=== PATIENT | female | born 1965 | race African-American/Black ===

== ENCOUNTER 2017-06-11 13:19 | Inpatient (IN) | payer OTHER, SELFPAY ==
--- NOTE | 2017-06-11 16:50 | RAD REPORT ---
EXAM DESCRIPTION: US - Abdomen Exam Limited - 06/11/2017 4:41 pm CLINICAL HISTORY: Abdominal pain COMPARISON: None. FINDINGS: Numerous sub centimeter mobile gallstones are identifiable. There is no wall thickening or pericholecystic fluid. Common bile duct measures 7-8 mm which is upper normal. No intrahepatic dilatation. No duct stone see n. A portion of the duct in the head of the pancreas is obscured. IMPRESSION: Multi stone cholelithiasis with no wall thickening or pericholecystic fluid. Common bile duct is upper normal but no duct stone seen. Correlation is needed with any biliary obstr uctive clinical or laboratory findings.
[2017-06-11 16:54] LABS: Urine Blood NEGATIVE (NEG); Urine Glucose NEGATIVE (NEG); Urine Protein TRACE (NEG); Urine pH >8.5 (5.0-7.0)
[2017-06-11 17:09] LABS: Absolute Lymphocytes (CBC) 1.6 K/uL (0.7-4.9); Absolute Monocytes 0.6 K/uL (0.1-1.3); Absolute Neutrophil 11.5 K/uL (1.8-8.0); Basophils % 0.2 % (0-1.3); Eosinophils % 0.2 % (0-4.4); Hematocrit 39.3 % (36.0-45.0); Lymphocytes % 11.4 % (15.3-44.8); MCH 29.6 pg (27.0-35.0); MCV 87.5 fL (80-100); MPV 8.7 fL (7.6-11.3); Monocytes % 4.7 % (3.3-12.3); RBC Red Blood Cell Count 4.49 M/uL (3.86-4.86)
[2017-06-11 17:16] LABS: Bicarbonate 28 mEq/L (21-31); Glucose Level 126 mg/dL (65-120); Lipase 183 U/L (22-51); Potassium 3.9 mEq/L (3.6-5.0); Sodium Level 137 mEq/L (135-145)
[2017-06-11 17:25] LABS: ALT/SGPT 153 IU/L (10-60); AST/SGOT 298 IU/L (10-42); Albumin 4.4 g/dL (3.2-5.5); Alkaline Phosphatase 129 IU/L (42-121); Amylase Level 97 U/L (28-100); BUN Blood Urea Nitrogen 11 mg/dL (6-20); Bilirubin Direct 0.9 mg/dL (0-0.2); Bilirubin Total 2.1 mg/dL (0.3-1.2); Protein, Total 9.7 g/dL (6.0-8.3)
[2017-06-11] MEDS ORDERED: NA CHLORIDE 0.9% 1,000 ML ONE (17:56)
[2017-06-11] MEDS ORDERED: METRONIDAZOLE 500mg IVPB 500 MG/100 ML BAG IV ONE (17:56)
[2017-06-11] MEDS ORDERED: CEFTRIAXONE/SWI 1gm 1 GM/10 ML SYR ONE (17:56)
--- NOTE | 2017-06-11 18:33 | RAD REPORT ---
EXAM DESCRIPTION: CTAbdomen Pelvis W Contrast - 06/11/2017 6:13 pm CLINICAL HISTORY: Abdominal pain. COMPARISON: None. TECHNIQUE: Biphasic CT imaging of the abdomen and pelvis was performed with 100 ml non-ionic IV cont rast. All CT scans are performed using dose optimization technique as appropriate and may include automated exposure control or mA/KV adjustment according to patient size. FINDINGS: The lung bases are clear. The liver, spleen, pancreas, adrenal glands and kidneys are within normal limits. No bowel obstruction, free air, free fluid or abscess. The appendix is normal. No evidence of signi ficant lymphadenopathy. No suspicious bony findings. IMPRESSION: No acute intra-abdominal or pelvic finding.
--- NOTE | 2017-06-11 19:33 | EDPHYS ---
Physician Documentation [facility] Name: Latrice Corey Age: 51 yrs Sex: Female : 1965 Arrival Date: 06/11/2017 Time: 13:23 Bed 16 Private MD: ED Physician Cristian Love HPI: 06/11 15:49 This 51 yrs old Black Female presents to ER via Ambulatory with complaints of Abdominal kb Pain, Back Pain. 15:49 The patient presents with abdominal pain in the epigastric area, in the right upper kb quadrant. Onset: The symptoms/episode began/occurred this morning. The symptoms do not radiate. Associated signs and symptoms: none. The symptoms are described as achy. Modifying factors: The symptoms are alleviated by nothing, the symptoms are aggravated by nothing. Severity of pain: At its worst the pain was moderate in the emergency department the pain is unchanged. The patient has not experienced similar symptoms in the past. The patient has not recently seen a physician. 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 - Social history:: Smoking status: Patient/guardian denies using tobacco. ROS: 15:49 Constitutional: Negative for fever, chills, and weight loss, Cardiovascular: Negative kb for chest pain, palpitations, and edema, Respiratory: Negative for shortness of breath, cough, wheezing, and pleuritic chest pain, Back: Negative for injury and pain, : Negative for injury, bleeding, discharge, and swelling, MS/Extremity: Negative for injury and deformity, Skin: Negative for injury, rash, and discoloration, Neuro: Negative for headache, weakness, numbness, tingling, and seizure. 15:49 Abdomen/GI: Positive for abdominal pain, Negative for nausea, vomiting, and diarrhea, constipation, abdominal cramps, abdominal distension, anorexia. Exam: 15:49 Constitutional: This is a well developed, well nourished patient who is awake, alert, kb and in no acute distress. Head/Face: Normocephalic, atraumatic. Chest/axilla: Normal chest wall appearance and motion. Nontender with no deformity. No lesions are appreciated. Cardiovascular: Regular rate and rhythm with a normal S1 and S2. No gallops, murmurs, or rubs. Normal PMI, no JVD. No pulse deficits. Respiratory: Lungs have equal breath sounds bilaterally, clear to auscultation and percussion. No rales, rhonchi or wheezes noted. No increased work of breathing, no retractions or nasal flaring. Skin: Warm, dry with normal turgor. Normal color with no rashes, no lesions, and no evidence of cellulitis. MS/ Extremity: Pulses equal, no cyanosis. Neurovascular intact. Full, normal range of motion. Neuro: Awake and alert, GCS 15, oriented to person, place, time, and situation. Cranial nerves II-XII grossly intact. Motor strength 5/5 in all extremities. Sensory grossly intact. Cerebellar exam normal. Normal gait. 15:49 Abdomen/GI: Inspection: abdomen appears normal, Bowel sounds: normal, in all quadrants, Palpation: soft, in all quadrants, mild abdominal tenderness, in the right upper quadrant. Vital Signs: 13:53 BP 170 / 101; Pulse 66; Resp 18; Temp 97(TE); Pulse Ox 97% on R/A; Weight 86.18 kg (R); ae1 Height 5 ft. 1 in. (154.94 cm); Pain 9/10; 15:07 BP 150 / 107; Pulse 75; Resp 16; Pulse Ox 97% on R/A; ae1 16:00 BP 152 / 101; Pulse 78; Resp 19; Pulse Ox 99% on R/A; rb1 17:00 BP 153 / 99; Pulse 74; Resp 18; Pulse Ox 100% on R/A; rb1 18:00 rb1 19:30 BP 149 / 96; Pulse 59; Resp 17 S; Pulse Ox 98% on R/A; jd3 20:53 BP 142 / 86; Pulse 60; Resp 17 S; Pulse Ox 99% on R/A; jd3 13:53 Body Mass Index 35.90 (86.18 kg, 154.94 cm) ae1 18:[address] rb1 MDM: 15:40 Patient medically screened. kb 15:49 Data reviewed: vital signs, nurses notes. Data interpreted: Pulse oximetry: on room air kb is 97 %. Interpretation: normal. 17:51 Physician consultation: Martell Collins MD was contacted at 17:51, regarding consult, kb patient's condition, and will see patient in inpatient room. 17:51 Counseling: I had a detailed discussion with the patient and/or guardian regarding: the kb historical points, exam findings, and any diagnostic results supporting the discharge/admit diagnosis, lab results, radiology results, the need for further work-up and treatment in the hospital. 19:30 Physician consultation: Lisa Can MD was contacted at 19:31, regarding admission, kb to the medical/surgical unit. patient's condition, and will see patient in ED, shortly. 06/11 15:44 Order name: US Abdomen Limited kb 06/11 15:46 Order name: Urine Dipstick--Ancillary (enter results); Complete Time: 16:56 bd 06/11 16:19 Order name: Abdomen Exam Limited; Complete Time: 16:51 EDMS 06/11 16:19 Order name: Amylase Level; Complete Time: 17:30 EDMS 06/11 16:19 Order name: Basic Metabolic Panel; Complete Time: 17:30 EDMS 06/11 16:19 Order name: CBC with Automated Diff; Complete Time: 17:29 EDMS 06/11 16:19 Order name: Lipase; Complete Time: 17:30 EDMS 06/11 16:19 Order name: Liver (Hepatic) Function; Complete Time: 17:30 EDMS 06/11 15:43 Order name: IV Saline Lock; Complete Time: 19:06 kb 06/11 15:43 Order name: Labs collected and sent; Complete Time: 19:06 kb 06/11 15:43 Order name: Urine Dipstick-Ancillary (obtain specimen); Complete Time: 15:43 kb 06/11 17:46 Order name: CT Abd/Pelvis - W/Contrast; Complete Time: 18:43 kb 06/11 19:35 Order name: CONS Physician Consult EDMS Administered Medications: 18:22 Drug: Rocephin - (cefTRIAXone) 1 grams Route: IVPB; Infused Over: 30 mins; Site: left rb1 antecubital; 18:45 Follow up: Response: No adverse reaction; IV Status: Completed infusion rb1 18:25 Drug: Flagyl 500 mg Volume: 100 ml; Route: IVPB; Rate: 200 ml/hr; Infused Over: 30 rb1 mins; Site: left antecubital; 22:17 Follow up: Response: No adverse reaction; IV Status: Completed infusion jd3 18:25 Drug: NS 0.9% 1000 ml Route: IV; Rate: 125 ml/hr; Site: left antecubital; rb1 22:17 Follow up: Response: No adverse reaction; IV Status: Infusion continued upon admission jd3 Disposition: 06/11/17 19:32 Hospitalization ordered by Lisa Can for Observation. Preliminary diagnosis are Cholelithiasis, Abnormal results of liver function studies. - Bed requested for Telemetry/MedSurg (observation). - Status is Observation. jd3 - Condition is Stable. - Problem is new. - Symptoms are unchanged. UTI on Admission? No Addendum: 06/15/2017 06:08 Co-signature as Attending Physician, Cristian Love MD Available for consultation at p s1 all times. . Signatures: Dispatcher [employer] EDOR María Edouard, CAN HANDLER-C CAN HANDLER-CkKeisha Salazar, RN RN dw Krysta Oliver, RN RN rb1 Alphonso Chavez RN RN ae1 Zana Correa RN RN Cristian Cummings MD MD ps1 Corrections: (The following items were deleted from the chart) 06/11 17:26 16:33 AMYLASE, SERUM+C.LAB.BRZ ordered. EDMS EDMS 17:26 16:33 BASIC METABOLIC PANEL+C.LAB.BRZ ordered. EDMS EDMS 17: 16:33 CBC+H.LAB.BRZ ordered. EDMS EDMS 17: 16:33 Creatinine for Radiology+C.LAB.BRZ ordered. EDMS EDMS 17:26 16:33 HEPATIC FUNCTION+C.LAB.BRZ ordered. EDMS EDMS 17:26 16:33 LIPASE+C.LAB.BRZ ordered. EDMS EDMS 17:53 17:44 Abdomen Pelvis W Con+CT.RAD.BRZ ordered. EDMS EDMS
--- NOTE | 2017-06-11 19:33 | ER ---
Nurse's Notes [facility] Name: Latrice Corey Age: 51 yrs Sex: Female : 1965 Arrival Date: 06/11/2017 Time: 13:23 Bed 16 Private MD: Diagnosis: Cholelithiasis;Abnormal results of liver function studies Presentation: 06/11 13:52 Presenting complaint: Patient states: patient states she started with vomiting and ae1 abdominal pain this morning. Transition of care: patient was not received from another setting of care. Onset of symptoms was June 11, 2017 at 08:00. 13:52 Method Of Arrival: Ambulatory ae1 13:54 Initial Sepsis Screen: Does the patient meet any 2 criteria? No. Patient's initial ae1 sepsis screen is negative. 13:54 Acuity: RUDDY 3 ae1 15:35 Initial Sepsis Screen: Does the patient have a suspected source of infection? No. rb1 Patient's initial sepsis screen is negative. Care prior to arrival: None. 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 - Social history:: Smoking status: Patient/guardian denies using tobacco. Screenin:35 Abuse screen: Denies threats or abuse. Nutritional screening: No deficits noted. rb1 Tuberculosis screening: No symptoms or risk factors identified. Fall Risk None identified. Assessment: 15:07 Reassessment: V/S rechecked, patient updated on wait time, Patient is accompanied by ae1 friend. Respirations even and unlabored. 15:35 General: Appears in no apparent distress. comfortable, Behavior is calm, cooperative. rb1 Pain: Complains of pain in right upper quadrant. Neuro: Level of Consciousness is awake, alert, obeys commands, Oriented to person, place, time, situation. Cardiovascular: Capillary refill < 3 seconds is brisk in bilateral fingers. Respiratory: Airway is patent Respiratory effort is even, unlabored, Respiratory pattern is regular, symmetrical. GI: Bowel sounds present X 4 quads. Reports nausea, vomiting. Derm: Skin is dry, Skin is normal, Skin temperature is warm. 15:35 GI: Abd is soft Abdomen is tender to palpation in right upper quadrant. rb1 16:30 Reassessment: Patient appears in no apparent distress at this time. No changes from rb1 previously documented assessment. 17:28 Reassessment: Patient appears in no apparent distress at this time. Patient and/or rb1 family updated on plan of care and expected duration. Pain level reassessed. Patient is alert, oriented x 3, equal unlabored respirations, skin warm/dry/pink. Family is at bedside. 18:00 Reassessment: Pt. went to CT. rb1 18:34 Reassessment: Patient appears in no apparent distress at this time. Patient and/or rb1 family updated on plan of care and expected duration. Pain level reassessed. Patient is alert, oriented x 3, equal unlabored respirations, skin warm/dry/pink. 19:30 Reassessment: Patient appears in no apparent distress at this time. No changes from jd3 previously documented assessment. Patient and/or family updated on plan of care and expected duration. Pain level reassessed. Patient is alert, oriented x 3, equal unlabored respirations, skin warm/dry/pink. Patient states feeling better. 20:54 Reassessment: Patient appears in no apparent distress at this time. Patient and/or jd3 family updated on plan of care and expected duration. Pain level reassessed. Patient is alert, oriented x 3, equal unlabored respirations, skin warm/dry/pink. 22:15 Reassessment: Patient appears in no apparent distress at this time. Patient and/or jd3 family updated on plan of care and expected duration. Pain level reassessed. Patient is alert, oriented x 3, equal unlabored respirations, skin warm/dry/pink. pt reported understanding of need for admission. Vital Signs: 13:53 BP 170 / 101; Pulse 66; Resp 18; Temp 97(TE); Pulse Ox 97% on R/A; Weight 86.18 kg (R); ae1 Height 5 ft. 1 in. (154.94 cm); Pain 9/10; 15:07 BP 150 / 107; Pulse 75; Resp 16; Pulse Ox 97% on R/A; ae1 16:00 BP 152 / 101; Pulse 78; Resp 19; Pulse Ox 99% on R/A; rb1 17:00 BP 153 / 99; Pulse 74; Resp 18; Pulse Ox 100% on R/A; rb1 18:00 rb1 19:30 BP 149 / 96; Pulse 59; Resp 17 S; Pulse Ox 98% on R/A; jd3 20:53 BP 142 / 86; Pulse 60; Resp 17 S; Pulse Ox 99% on R/A; jd3 13:53 Body Mass Index 35.90 (86.18 kg, 154.94 cm) ae1 18:[address] rb1 ED Course: 13:23 Patient arrived in ED. mr 13:55 Triage completed. ae1 13:56 Arm band placed on left wrist. ae1 15:06 María Edouard FNP-C is PHCP. kb 15:06 Cristian Love MD is Attending Physician. kb 15:35 Patient has correct armband on for positive identification. Bed in low position. Call rb1 light in reach. Side rails up X 1. Pulse ox on. NIBP on. 16:17 Krysta Oliver RN is Primary Nurse. rb1 16:41 Abdomen Exam Limited In Process Unspecified. EDMS 16:41 US Abdomen Limited In Process Unspecified. EDMS 18:13 CT Abd/Pelvis - W/Contrast In Process Unspecified. EDMS 19:00 Report given to MAYTE Mckeon. rb1 19:00 Inserted saline lock: 20 gauge in left antecubital area, using aseptic technique. jd3 ,using aseptic technique. placed by day shift Blood collected. Patient admitted, IV remains in place. 19:32 Lisa Can MD is Hospitalizing Provider. kb 22:13 No provider procedures requiring assistance completed. jd3 Administered Medications: 18:22 Drug: Rocephin - (cefTRIAXone) 1 grams Route: IVPB; Infused Over: 30 mins; Site: left rb1 antecubital; 18:45 Follow up: Response: No adverse reaction; IV Status: Completed infusion rb1 18:25 Drug: Flagyl 500 mg Volume: 100 ml; Route: IVPB; Rate: 200 ml/hr; Infused Over: 30 rb1 mins; Site: left antecubital; 22:17 Follow up: Response: No adverse reaction; IV Status: Completed infusion jd3 18:25 Drug: NS 0.9% 1000 ml Route: IV; Rate: 125 ml/hr; Site: left antecubital; rb1 22:17 Follow up: Response: No adverse reaction; IV Status: Infusion continued upon admission jd3 Outcome: 19:32 Decision to Hospitalize by Provider. kb 22:14 Admitted to Med/surg accompanied by tech, via stretcher, room 215, with chart, Report jd3 called to Jacquelin RN 22:14 Condition: stable 22:15 Instructed on the need for admit, Demonstrated understanding of instructions. jd3 22:18 Patient left the ED. jd3 Signatures: Dispatcher [employer] EDMS María Edouard, GRINDING OPERATOR-C GRINDING OPERATOR-CkInes Fisher OliverKrysta, RN RN rb1 Alphonso Chavez RN RN ae1 Zana Correa RN RN jd3 Corrections: (The following items were deleted from the chart) 13:59 13:53 BP 140 / 101; Pulse 66bpm; Resp 18bpm; Pulse Ox 97% RA; Temp 97F Temporal; 86.18 ae1 kg Reported; Height 5 ft. 1 in.; BMI: 35.9; Pain 9/10; ae1
--- NOTE | 2017-06-11 21:12 | P.HP ---
Certification for Inpatient Patient admitted to: Observation With expected LOS: <2 Midnights Practitioner: I am a practitioner with admitting privileges, knowledge of patient current condition, hospital course, and medical plan of care. Services: Services provided to patient in accordance with Admission requirements found in Title 42 Section 412.3 of the Code of Federal Regulations Patient History Date of Service: 06/11/17 Reason for admission: symptomatic cholelithiasis History of Present Illness: Ms Corey is a 51 years old woman with history of HTN, who start today with abdominal pain. Initially was in epigastric area, then was localized on RUQ, radiated to the back. Pain intensity was 7/10. She had 1 episode of vomiting, and subsequently her pain resolved. She denied fever or chills. She has had this pain before about [address] abd/pelvis no acute abnormalities, Abd US : remarkable for cholelithiasis with no ducts dilation, or cholecystitis. However, lab work remarkable for elevated WBC count 13K, bilirubin, ald phos and transaminases. Allergies No Known Allergies Allergy (Unverified 06/11/17 20:28) - Past Medical/Surgical History -: HTN Past Surgical History: Reviewed- Non-Contributory - Family History Family History: Reviewed- Non-Contributory - Social History Smoking Status: Never smoker Alcohol use: No CD- Drugs: No Place of Residence: Home Review of Systems 10-point ROS is otherwise unremarkable Physical Examination - Physical Exam General: Alert, In no apparent distress HEENT: Atraumatic, PERRLA, Mucous membr. moist/pink, EOMI, Sclerae nonicteric Neck: Supple, 2+ carotid pulse no bruit, No LAD, Without JVD or thyroid abnormality Respiratory: Clear to auscultation bilaterally, Normal air movement Cardiovascular: Regular rate/rhythm, Normal S1 S2 Gastrointestinal: Normal bowel sounds, Tenderness (mild tender to palpation in RUQ) Musculoskeletal: No tenderness Integumentary: No rashes Neurological: Normal speech, Normal strength at 5/5 x4 extr, Normal tone, Normal affect Lymphatics: No axilla or inguinal lymphadenopathy - Studies Laboratory Data (last 24 hrs) 06/11/17 16:53: Sodium 137, Potassium 3.9, BUN 11, Creatinine 0.68, Glucose 126 H, Total Bilirubin 2.1 H, AST 298 H, ALT 153 H, Alkaline Phosphatase 129 H, Amylase 97, Lipase 183 H 06/11/17 16:53: WBC 13.7 H, Hgb 13.3, Hct 39.3, Plt Count 333 06/11/17 15:43: Creatinine Cancelled 06/11/17 15:43: WBC Cancelled, Hgb Cancelled, Hct Cancelled, Plt Count Cancelled 06/11/17 15:43: Sodium Cancelled, Potassium Cancelled, BUN Cancelled, Creatinine Cancelled, Glucose Cancelled, Total Bilirubin Cancelled, AST Cancelled, ALT Cancelled, Alkaline Phosphatase Cancelled, Amylase Cancelled, Lipase Cancelled Assessment and Plan - Problems (Diagnosis) (1) Cholelithiasis Current Visit: Yes Status: Acute Qualifiers: Cholelithiasis location: gallbladder Cholecystitis presence: without cholecystitis Biliary obstruction: without biliary obstruction Qualified Code(s): K80.20 - Calculus of gallbladder without cholecystitis without obstruction (2) HTN (hypertension) Current Visit: Yes Status: Acute Qualifiers: Hypertension type: essential hypertension Qualified Code(s): I10 - Essential (primary) hypertension - Plan Ms Ward will be admitted to the hospital due to abdominal pain, secondary to symptomatic cholelithiasis. No images signs of cholecystitis. Laboratory work remarkable for abnormal liver function and leukocytosis. Will start empiric antibiotics, IV fluids, keep her NPO, consult Dr Collins. - Advance Directives Does patient have a Living Will: No Does patient have a Durable POA for Healthcare: No - Code Status/Comfort Care Code Status Assessed: Yes Code Status: Full Code
[2017-06-11] MEDS ORDERED: KETOROLAC 30 MG/ML INJ IV PRN (22:18)
[2017-06-11] MEDS ORDERED: ACETAMINOPHEN 500 MG TAB PO PRN (22:18)
[2017-06-11 22:39] VITALS: BMI 34.4
[2017-06-11] MEDS: NA CHLORIDE 0.9% 1,000 ML IV SCH (22:53)
[2017-06-11] MEDS: CIPROFLOXACIN 400mg IV 400 MG/200 ML BAG IV SCH (23:18)
[2017-06-12] MEDS: METRONIDAZOLE 500mg IVPB 500 MG/100 ML BAG IV SCH ×3 (00:42→16:13)
[2017-06-12 05:39] LABS: ALT/SGPT 176 IU/L (10-60); AST/SGOT 260 IU/L (10-42); Albumin 3.4 g/dL (3.2-5.5); Alkaline Phosphatase 129 IU/L (42-121); BUN Blood Urea Nitrogen 10 mg/dL (6-20); Bicarbonate 27 mEq/L (21-31); Bilirubin Total 3.7 mg/dL (0.3-1.2); Glucose Level 107 mg/dL (65-120); Lipase 27 U/L (22-51); Magnesium 1.9 mg/dL (1.8-2.5); Potassium 3.6 mEq/L (3.6-5.0); Protein, Total 7.4 g/dL (6.0-8.3); Sodium Level 138 mEq/L (135-145)
[2017-06-12 06:40] LABS: Urine Appearance CLEAR; Urine Bilirubin NEGATIVE (NEG); Urine Blood NEGATIVE (NEG); Urine Color YELLOW; Urine Glucose NEGATIVE (NEG); Urine Microscopic Reflex NO UMIC; Urine Protein NEGATIVE (NEG); Urine Specific Gravity <1.005 (1.005-1.030); Urine Urobilinogen 0.2 mg/dL (0.2-1.0); Urine pH 5.5 (5.0-7.0)
[2017-06-12] MEDS ORDERED: KCL 20 MEQ/100 mL IVPB 20 MEQ/100 ML BAG IV SCH (07:00)
[2017-06-12] MEDS ORDERED: LORazepam 2 MG/ML VIAL IV ONE ×3 (07:52→10:00)
[2017-06-12] MEDS: NA CHLORIDE 0.9% 1,000 ML IV SCH ×2 (08:37→18:18)
[2017-06-12] MEDS: CIPROFLOXACIN 400mg IV 400 MG/200 ML BAG IV SCH ×2 (08:38→21:27)
--- NOTE | 2017-06-12 10:57 | RAD REPORT ---
EXAM DESCRIPTION: MRIAbdomen (Gallbladder) CLINICAL HISTORY: Abdominal pain. Elevated liver function tests. COMPARISON: CT/ultrasound imaging 06/11/2017. FINDINGS: Extensive cholelithiasis is present. Trace pericholecystic fluid is suspected. The intrahe patic and extrahepatic biliary tree is normal in caliber. No common duct stone is seen. Pancreatic du ct is not pathologically dilated. Limited T2 weighted imaging through the solid organs shows no acute or aggressive finding. No bulky l ymphadenopathy or free fluid collections in the abdomen. IMPRESSION: No biliary tree dilatation or other biliary tree abnormality detected. Extensive cholelithiasis with trace pericholecystic fluid present. In the correct clinical setting, e codey acute cholecystitis is a possibility.
--- NOTE | 2017-06-12 15:30 | P.PN ---
Subjective Date of Service: 06/12/17 Chief Complaint: symptomatic cholelithiasis Patient examined with RN. Over this morning. States that her pain is much better. Case discussed with general surgery awaiting GI recommendations at this time. Review of Systems 10-point ROS is otherwise unremarkable Physical Examination - Vital Signs Temperature: 97.4 F Blood Pressure: 127/73 Pulse: 78 Respirations: 16 Pulse Ox (%): 98 - Physical Exam General: Alert, In no apparent distress HEENT: Atraumatic Neck: Supple Respiratory: Clear to auscultation bilaterally, Normal air movement Cardiovascular: Regular rate/rhythm, Normal S1 S2 Gastrointestinal: Normal bowel sounds, Tenderness Musculoskeletal: No tenderness Integumentary: No rashes Neurological: Normal speech, Normal tone, Normal affect Lymphatics: No axilla or inguinal lymphadenopathy - Studies Laboratory Data (last 24 hrs) 06/11/17 16:53: Sodium 137, Potassium 3.9, BUN 11, Creatinine 0.68, Glucose 126 H, Total Bilirubin 2.1 H, AST 298 H, ALT 153 H, Alkaline Phosphatase 129 H, Amylase 97, Lipase 183 H 06/11/17 16:53: WBC 13.7 H, Hgb 13.3, Hct 39.3, Plt Count 333 06/11/17 15:43: Creatinine Cancelled 06/11/17 15:43: WBC Cancelled, Hgb Cancelled, Hct Cancelled, Plt Count Cancelled 06/11/17 15:43: Sodium Cancelled, Potassium Cancelled, BUN Cancelled, Creatinine Cancelled, Glucose Cancelled, Total Bilirubin Cancelled, AST Cancelled, ALT Cancelled, Alkaline Phosphatase Cancelled, Amylase Cancelled, Lipase Cancelled Medications List Reviewed: Yes Assessment & Plan - Problems (Diagnosis) (1) Choledocholithiasis Current Visit: Yes Status: Acute Plan: Elevated LFT's with concern for Choledocholithiasis -MRCP with early cholecysitis -GI consulted. Awaiting reccs (2) Cholelithiasis Onset Date: 06/12/17 Current Visit: Yes Status: Acute Plan: General Surgery consulted. -Awaiting GI reccs at this time -Most likely Will need ERCP. Qualifiers: Cholelithiasis location: gallbladder Cholecystitis presence: without cholecystitis Biliary obstruction: without biliary obstruction Qualified Code(s): K80.20 - Calculus of gallbladder without cholecystitis without obstruction (3) HTN (hypertension) Onset Date: 06/12/17 Current Visit: Yes Status: Chronic Qualifiers: Hypertension type: essential hypertension Qualified Code(s): I10 - Essential (primary) hypertension Discharge Plan: Home Plan to discharge in: 48 Hours - Code Status/Comfort Care Code Status Assessed: Yes Critical Care: No
--- NOTE | 2017-06-12 18:22 | CON ---
Date of Consultation: 06/12/2017 Reason For Consultation: Abdominal pain, assess for choledocholithiasis. History Of Present Illness: Ms. Corey is a 51-year-old female, who was in normal state of health. She did not know that she had any gallstone until she suddenly started experiencing abdominal pain l ocated in the epigastrium with associated, nausea, vomiting, and radiating to the back. Pain was 10/ 10. The pain initially started in right upper quadrant. It soon became epigastric also. Denies any fever, chills. Denies any hematemesis, melena, or hematochezia. In the past, now looking retrospec t, she had occasional abdominal pain due to that. She has some dyspepsia, occasional GERD. Other than that, no significant history. Past Medical History: Hypertension. Past Surgical History: Not related to above. Family History: Denies any gastrointestinal, liver, or pancreatic malignancy in the family. Social History: Only social alcohol. Does not take tobacco. Psychiatric History: None. Allergy: Reviewed in the chart. Medications: Reviewed in the chart. Review of Systems: General: No weight loss, weight gain. No fever or chills. Appetite is good prior to acute onset of illness. Respiratory: No shortness of breath, cough, or expectoration. Cardiac: No palpitation, heart murmur. No orthopnea or dyspnea. GI: As elaborated above. Hepatologic: Denies any history of jaundice, hepatitis, or abnormal liver affliction in the past. Musculoskeletal: No arthralgia, myalgia. No deformity. Dermatologic: No pruritus. No other new condition. Endocrine: None. Neuropsychiatric: None. Musculoskeletal: None. Physical Examination: General: Young female. At this time, in no other acute distress noted. Hemodynamic respiratory pro file within normal range. HEENT: Atraumatic, normocephalic. Slight icterus might be present. No temporal wasting. No facial wasting. Neck: Supple. No lymphadenopathy. Trachea central in position. Chest: Clear to auscultation and percussion. Cardiovascular: normal S1, S2. No S3, no S4. Abdomen: Soft, but epigastric tenderness is located. Bowel sounds are present. No hepatomegaly. N o splenomegaly. No ascites. No succussion splash. Right upper quadrant area also had deep tenderne ss. Extremities: Upper and lower extremities are normal, symmetrical. Dermatologic: normal. Diagnostic Data: Reviewed and analyzed. White cell count is 13,000. AST and ALT are mildly elevate d, although falling out. MRCP is negative for choledocholithiasis. Ultrasound shows CBD upper borde r of the normal. CT scan not significant. Impression, Plan, And Recommendation: Ms. Corey is a 51-year-old female with abnormal LFT and typi jagdeep gallstone attack. Given her condition and her negative MRCP at this time, we can directly procee d with cholecystectomy when it is deemed to be appropriate. Chances of having a choledocholithiasis is low in this case. However if she does have or doing operative time any stone is found postoperati vely, we can always do her ERCP. For the time being treat her with antibiotic, bowel rest, slow advance of diet will be also recommend ed because patient is very hungry, she wants to eat. Should it be necessary, I have discussed with her regarding the ERCP. We have discussed about the ri sk, benefit, indications, contraindications, possible complications including 5-50% incidence of acut e pancreatitis, bleeding, tear, perforation, infection, sepsis, need for surgery, need for blood funes sfusion, etc. She has good understanding. She is agreeable. RAMIN/ERIN Voice ID: [id number] Report ID: [id number]
--- NOTE | 2017-06-12 19:43 | CON ---
Date of Consultation: 06/12/2017 Diagnoses: Choledocholithiasis, right upper quadrant pain, acute cholecystitis, symptomatic cholelit hiasis. History Of Present Illness: This is the case of a 51-year-old patient, comes to the ER with epigastr ic right upper quadrant pain several days of duration associated with nausea and vomiting. The patie nt was came to the ER. Admitted to the hospitalist with the diagnoses above and a surgical consult w as obtained. She denies any dysuria, hematuria, hematochezia, or melena. Denies any recent travelli ng out of the country. Denies any family member sick at home. She does not remember any previous co lonoscopy is needed. Review of Systems: Constitutional: Denies any fever, any chills. Respiratory: Denies any shortness of breath. Gastrointestinal: As above. Genitourinary: Denies any dysuria or hematuria. Allergies: NONE. Medical History: Hypertension. Surgical History: She does not remember. Family History: Noncontributory. Social History: She does not smoke. She does not drink alcohol. Physical Examination: General: The patient is awake and alert. HEENT: Pupils are equal and reactive. Anicteric. Neck: Supple. Chest: Clear. Abdomen: Epigastric right upper quadrant tenderness. Feels better than yesterday she say. Pelvic/Breast/Rectal: Deferred. Extremities: Good capillary refill. Laboratory Data: Blood work shows WBC count 13.7. Also LFTs shows bilirubin increase almost double from yesterday. She came with 2.1 now it is 3.7 with alkaline phosphate also 129, AST 260, ALT 176. Ultrasound shows gallstones, multiple. Sometime, she has a high lipase of 183. Assessment And Plan: Magnetic resonance cholangiopancreatography initially shows no major defects, b ut this patient's bilirubin is getting higher and there is also documented in the past history of mis sing common bile duct stone. In this obvious case of some kind of location of the liver. I am going to order an endoscopic retrograde cholangiopancreatography first to understand the nature of her dis ease. She was fully explained the benefits and alternatives of laparoscopic, possible open cholecyst ectomy which include, but not limited to infection, bleeding, damage to adjacent structures, anesthes ia complication, recurrence, OH, and even . She also understand this may not relieve any sympto ms. She might need more than one surgical intervention. She come also initially with an elevated li pase consistent with also a gallstone pancreatitis though and we are going to order an ERCP whenever the GI believe it is safe to do so. She was fully explained about all this plan. CORY Voice ID: [id number] Report ID: [id number]
[2017-06-12] MEDS: ONDANSETRON 4 MG/2 ML VIAL IV PRN (21:27)
[2017-06-13] MEDS: METRONIDAZOLE 500mg IVPB 500 MG/100 ML BAG IV SCH ×3 (01:26→17:12)
[2017-06-13] MEDS: NA CHLORIDE 0.9% 1,000 ML IV SCH ×3 (05:54→20:18)
[2017-06-13 06:01] LABS: ALT/SGPT 153 IU/L (10-60); AST/SGOT 140 IU/L (10-42); Albumin 3.2 g/dL (3.2-5.5); Alkaline Phosphatase 149 IU/L (42-121); BUN Blood Urea Nitrogen 9 mg/dL (6-20); Bicarbonate 25 mEq/L (21-31); Bilirubin Total 3.3 mg/dL (0.3-1.2); Glucose Level 87 mg/dL (65-120); Lipase 15 U/L (22-51); Protein, Total 7.1 g/dL (6.0-8.3); Sodium Level 137 mEq/L (135-145)
[2017-06-13] MEDS: CIPROFLOXACIN 400mg IV 400 MG/200 ML BAG IV SCH ×2 (08:24→20:18)
[2017-06-13] MEDS ORDERED: HYDRALAZINE HCL 20 MG/ML VIAL IV ONE (11:10)
--- NOTE | 2017-06-13 14:03 | P.PN ---
Subjective Date of Service: 06/13/17 Chief Complaint: symptomatic cholelithiasis Patient examined with RN. Over this morning. States that her pain is much better. Case discussed with general surgery and GI. Appreciated recommendations at this time. Awaiting for ERCP today. Review of Systems 10-point ROS is otherwise unremarkable Physical Examination - Vital Signs Temperature: 97.5 F Blood Pressure: 188/97 Pulse: 76 Respirations: 18 Pulse Ox (%): 94 - Physical Exam General: Alert, In no apparent distress, Oriented x3 HEENT: Atraumatic, PERRLA, EOMI Neck: Supple, JVD not distended Respiratory: Clear to auscultation bilaterally, Normal air movement Cardiovascular: Regular rate/rhythm, Normal S1 S2 Gastrointestinal: Normal bowel sounds, No tenderness Musculoskeletal: No tenderness Integumentary: No rashes Neurological: Normal speech, Normal tone, Normal affect Lymphatics: No axilla or inguinal lymphadenopathy - Studies Medications List Reviewed: Yes Assessment & Plan - Problems (Diagnosis) (1) Choledocholithiasis Current Visit: Yes Status: Acute Plan: Elevated LFT's with concern for Choledocholithiasis. Improving today -MRCP with early cholecysitis -GI consulted. Reccs ERCP -Gen Surgery on board as well. (2) Cholelithiasis Onset Date: 06/12/17 Current Visit: Yes Status: Acute Plan: General Surgery consulted. -GI to perform ERCP soon. Qualifiers: Cholelithiasis location: gallbladder Cholecystitis presence: without cholecystitis Biliary obstruction: without biliary obstruction Qualified Code(s): K80.20 - Calculus of gallbladder without cholecystitis without obstruction (3) HTN (hypertension) Onset Date: 06/12/17 Current Visit: Yes Status: Chronic Qualifiers: Hypertension type: essential hypertension Qualified Code(s): I10 - Essential (primary) hypertension
[2017-06-13] MEDS: ONDANSETRON 4 MG/2 ML VIAL IV PRN (21:48)
[2017-06-14] MEDS: METRONIDAZOLE 500mg IVPB 500 MG/100 ML BAG IV SCH ×3 (00:49→16:35)
[2017-06-14] MEDS: CIPROFLOXACIN 400mg IV 400 MG/200 ML BAG IV SCH ×2 (08:45→20:06)
[2017-06-14] MEDS: NA CHLORIDE 0.9% 1,000 ML IV SCH ×2 (08:46→20:18)
--- NOTE | 2017-06-14 09:54 | P.PN ---
Subjective Date of Service: 06/14/17 Chief Complaint: symptomatic cholelithiasis Patient examined with RN. States that her pain is much better. Case discussed with general surgery and GI. Appreciated recommendations at this time. Awaiting for ERCP today. NPO for now. Review of Systems 10-point ROS is otherwise unremarkable Physical Examination - Vital Signs Temperature: 97.1 F Blood Pressure: 147/82 Pulse: 65 Respirations: 16 Pulse Ox (%): 98 - Physical Exam General: Alert, In no apparent distress HEENT: Atraumatic, PERRLA, EOMI Neck: Supple, JVD not distended Respiratory: Clear to auscultation bilaterally, Normal air movement Cardiovascular: Regular rate/rhythm, Normal S1 S2 Gastrointestinal: Normal bowel sounds, No tenderness Musculoskeletal: No tenderness Integumentary: No rashes Neurological: Normal speech, Normal tone, Normal affect Lymphatics: No axilla or inguinal lymphadenopathy - Studies Medications List Reviewed: Yes Assessment & Plan - Problems (Diagnosis) (1) Choledocholithiasis Current Visit: Yes Status: Acute Plan: Elevated LFT's with concern for Choledocholithiasis. Improving today -MRCP with early cholecysitis -GI consulted. Reccs ERCP today -Gen Surgery on board as well. (2) Cholelithiasis Onset Date: 06/12/17 Current Visit: Yes Status: Acute Plan: General Surgery consulted. -GI to perform ERCP soon. Qualifiers: Cholelithiasis location: gallbladder Cholecystitis presence: without cholecystitis Biliary obstruction: without biliary obstruction Qualified Code(s): K80.20 - Calculus of gallbladder without cholecystitis without obstruction (3) HTN (hypertension) Onset Date: 06/12/17 Current Visit: Yes Status: Chronic Qualifiers: Hypertension type: essential hypertension Qualified Code(s): I10 - Essential (primary) hypertension Discharge Plan: Home Plan to discharge in: 24 Hours - Code Status/Comfort Care Code Status Assessed: Yes Critical Care: No
[2017-06-14] MEDS ORDERED: GENTAMICIN SULF 80 MG/2ML INJ ONE (14:53)
[2017-06-14] MEDS ORDERED: Ringers Lactate 1,000 ML IV ONE (15:13)
[2017-06-14] MEDS ORDERED: PROPOFOL 200 MG/20 ML VIAL IV ONE (15:21)
[2017-06-14] MEDS ORDERED: LIDOCAINE 1% MPF 5 ML VIAL ONE ×2 (15:22)
--- NOTE | 2017-06-14 16:10 | RAD REPORT ---
EXAM DESCRIPTION: Fluoroscopy for ERCP CLINICAL HISTORY: Abdominal pain FINDINGS: Fluoroscopic images submitted from ERCP procedure. Details and diagnostic findings of the procedure are not available.
[2017-06-15] MEDS: METRONIDAZOLE 500mg IVPB 500 MG/100 ML BAG IV SCH ×3 (00:25→17:23)
[2017-06-15] MEDS: NA CHLORIDE 0.9% 1,000 ML IV SCH ×2 (02:51→17:23)
--- NOTE | 2017-06-15 02:52 | OP ---
Date of Procedure: 06/14/2017 Surgeon: Faye Newton MD Procedure Performed: 1.Endoscopic retrograde cholangiopancreatography. 2.Intraoperative supervision and interpretation of biliary axial fluoroscopy for endoscopic retrogra de cholangiopancreatography purpose. Total Fluoroscopic Time: 0.37 minutes. Indication: Abnormal LFTs, suspected choledocholithiasis. Premedication: Per Anesthesia. Complexity: Moderate. Tolerance To Sedation: Excellent. Procedure In Detail: Procedure, possible complications, and alternatives including but not limited t o 5% to 50% incidence of acute pancreatitis, bleeding, tear, perforation, infection, sepsis, need for surgery, need for blood transfusion, anesthesia-related problems explained to the patient. Informed consent was obtained. She was placed in the left prone position. After appropriate level of anesth esia, scope was passed. Esophageal and gastric mucosa were not visualized due to side-view nature of the scope and its inherent limitation. Duodenal part 1 and 2 appeared to be in the normal range. M ajor and minor papillae were normal appearing. Selective cannulation with a biliary cannula was done in the common bile duct. Common bile duct, common hepatic duct, right and left hepatic ducts, and i ntrahepatic ducts were all within normal range. No specific filling defect noted; anyway, good drain age noted. Contour was normal. However, cystic duct was only partly visualized and severe spasm not ed. Multiple gallstones were noted. Impression: Normal endoscopic retrograde cholangiopancreatography. No choledocholithiasis found. Plan: Proceed with laparoscopic cholecystectomy. Complications: None. The patient tolerated the procedure well. Disposition: After full recovery, back to the floor. Result has been conveyed to Dr. Martell Collins and Dr. Coles. RAMIN/ERIN Voice ID: [id number] Report ID: [id number]
[2017-06-15] MEDS: CIPROFLOXACIN 400mg IV 400 MG/200 ML BAG IV SCH ×2 (08:36→20:44)
[2017-06-15 11:37] LABS: Absolute Lymphocytes (CBC) 2.5 K/uL (0.7-4.9); Absolute Monocytes 0.8 K/uL (0.1-1.3); Absolute Neutrophil 5.7 K/uL (1.8-8.0); Basophils % 0.6 % (0-1.3); Eosinophils % 1.3 % (0-4.4); Hematocrit 38.8 % (36.0-45.0); Lymphocytes % 27.8 % (15.3-44.8); MCH 29.8 pg (27.0-35.0); MCV 88.9 fL (80-100); MPV 8.5 fL (7.6-11.3); Monocytes % 8.6 % (3.3-12.3); RBC Red Blood Cell Count 4.36 M/uL (3.86-4.86)
[2017-06-15 12:07] LABS: ALT/SGPT 84 IU/L (10-60); AST/SGOT 52 IU/L (10-42); Albumin 3.1 g/dL (3.2-5.5); Alkaline Phosphatase 138 IU/L (42-121); BUN Blood Urea Nitrogen 6 mg/dL (6-20); Bicarbonate 26 mEq/L (21-31); Bilirubin Total 1.4 mg/dL (0.3-1.2); Glucose Level 102 mg/dL (65-120); Potassium 3.7 mEq/L (3.6-5.0); Protein, Total 8.2 g/dL (6.0-8.3); Sodium Level 134 mEq/L (135-145)
--- NOTE | 2017-06-15 15:49 | PN ---
Subjective: Currently, the patient lying in bed. She looks comfortable. She has no chest pain. She only did have right upper quadrant pain. She is tolerating full liquid diet, fine. She underwent ERCP yesterday and she is going to have surgery on Saturday with Dr. Collins. Objective: Vital Signs: Blood pressure is 134/66, respiratory rate 18, pulse 59, temperature 97.7, saturating 96% on room air. General: She is fully alert and oriented x3. Does not look in any distress. HEENT: Atraumatic, normocephalic. PERRLA. Oral mucosa is moist. Neck: Supple. No JVD. No carotid bruits. Chest: Clear to auscultation. Good air entry. Heart: Regular rate and rhythm. S1, S2 normal. No gallop or murmur. Abdomen: Soft, nontender. No masses. Obese. Minimal tenderness in the right upper quadrant. Positive bowel sounds. Extremities: No clubbing, cyanosis, or edema. No calf tenderness. Neurologic: Grossly intact. Laboratory Data: All pending today. I just ordered them. Assessment And Plan: 1. Choledocholithiasis with elevated LFTs, which are improved today. LFTs pending. MRCP done yesterday and was nl and GI advised to proceed with laparoscopic CCX and Dr. Collins to proceed with cholecystectomy on Saturday. 2. Hypertension, controlled today. 3. Ambulate. 4. Continue prophylactic antibiotic with Cipro and Flagyl till cholecystectomy on Saturday. 5. Diet. Continue full liquid. DEVON/ERIN Voice ID: [id number] Report ID: [id number] MTDD
[2017-06-15] MEDS: HYDRALAZINE HCL 20 MG/ML VIAL IV PRN (18:13)
[2017-06-15] MEDS: ONDANSETRON 4 MG/2 ML VIAL IV PRN (20:48)
[2017-06-16] MEDS: METRONIDAZOLE 500mg IVPB 500 MG/100 ML BAG IV SCH ×3 (00:45→16:22)
[2017-06-16] MEDS: NA CHLORIDE 0.9% 1,000 ML IV SCH ×3 (02:18→20:15)
[2017-06-16 05:07] LABS: Absolute Lymphocytes (CBC) 2.3 K/uL (0.7-4.9); Absolute Monocytes 0.8 K/uL (0.1-1.3); Absolute Neutrophil 5.8 K/uL (1.8-8.0); Basophils % 0.4 % (0-1.3); Eosinophils % 1.3 % (0-4.4); Hematocrit 35.6 % (36.0-45.0); Lymphocytes % 25.5 % (15.3-44.8); MCH 30.4 pg (27.0-35.0); MCV 88.2 fL (80-100); MPV 8.6 fL (7.6-11.3); Monocytes % 8.3 % (3.3-12.3); RBC Red Blood Cell Count 4.04 M/uL (3.86-4.86)
[2017-06-16 05:35] LABS: ALT/SGPT 67 IU/L (10-60); AST/SGOT 39 IU/L (10-42); Albumin 2.9 g/dL (3.2-5.5); Alkaline Phosphatase 119 IU/L (42-121); Amylase Level 22 U/L (28-100); BUN Blood Urea Nitrogen 6 mg/dL (6-20); Bicarbonate 25 mEq/L (21-31); Bilirubin Direct 0.3 mg/dL (0-0.2); Bilirubin Total 1.3 mg/dL (0.3-1.2); Glucose Level 97 mg/dL (65-120); Lipase 11 U/L (22-51); Potassium 3.7 mEq/L (3.6-5.0); Protein, Total 7.4 g/dL (6.0-8.3); Sodium Level 134 mEq/L (135-145)
[2017-06-16] MEDS ORDERED: KCL 20 MEQ/100 mL IVPB 20 MEQ/100 ML BAG IV SCH (06:00)
[2017-06-16] MEDS: CIPROFLOXACIN 400mg IV 400 MG/200 ML BAG IV SCH ×2 (09:58→20:15)
[2017-06-16] MEDS: HYDRALAZINE HCL 20 MG/ML VIAL IV PRN (16:22)
--- NOTE | 2017-06-16 17:25 | PN ---
Subjective: The patient currently sitting on the side of the bed. She is doing well. She is able t o tolerate her meals fine. She did not have any abdominal pain overnight. She had mild nausea that was controlled with nausea medicine. No fever or chills. She is getting ready to have surgery tomor row. Objective: Vital Signs: Currently vital signs; blood pressure is 127/60, respiratory rate 18, pulse 84, temperature 97.8, saturating 98% on room air. General: She is fully alert and oriented x3. Does not look in any distress. HEENT: Atraumatic, normocephalic. PERRLA. Oral mucosa is moist. Neck: Supple. No JVD. Chest: Clear to auscultation. Good air entry. Heart: Regular rate and rhythm. S1, S2 normal. No gallop or murmur. Abdomen: Soft, nontender. No masses. No hepatosplenomegaly. Positive bowel sounds. Extremities: No clubbing, cyanosis, or edema. No calf tenderness. Neurologic: Grossly intact. Laboratory Data: Today showed CBC within normal. CMP within normal except for sodium 134, total kristina irubin 1.3. AST of 67, ALT down to normal. Amylase and lipase within normal. Assessment And Plan: 1.Choledocholithiasis with elevated liver function tests. Proceed with laparoscopic cholecystectomy tomorrow morning with Dr. Collins. ERCP was inconclusive and normal. 2.Hypertension, well controlled today. 3.Continue prophylactic antibiotic with Cipro, Flagyl till post operation. 4.Discharge in a day or two after surgery if no complication. DEVON/ERIN Voice ID: [id number] Report ID: [id number]
[2017-06-16] MEDS: ONDANSETRON 4 MG/2 ML VIAL IV PRN (22:20)
[2017-06-17] MEDS: METRONIDAZOLE 500mg IVPB 500 MG/100 ML BAG IV SCH ×3 (00:41→17:08)
[2017-06-17 05:03] LABS: Potassium 3.2 mEq/L (3.6-5.0)
[2017-06-17] MEDS: KCL 20 MEQ/100 mL IVPB 20 MEQ/100 ML BAG IV SCH ×2 (05:40→08:55)
[2017-06-17] MEDS: NA CHLORIDE 0.9% 1,000 ML IV SCH ×2 (08:55→17:08)
[2017-06-17] MEDS: CIPROFLOXACIN 400mg IV 400 MG/200 ML BAG IV SCH ×2 (08:55→22:40)
[2017-06-17] MEDS ORDERED: MIDAZOLAM HCL 2 MG/2 ML INJ ONE (10:18)
[2017-06-17] MEDS ORDERED: PROPOFOL 200 MG/20 ML VIAL IV ONE (10:18)
[2017-06-17] MEDS ORDERED: ROCURONIUM 50 MG/5 ML VIAL IV ONE (10:19)
[2017-06-17] MEDS ORDERED: FENTANYL CITR 100 MCG/2 ML ONE ×2 (10:19→11:07)
[2017-06-17] MEDS ORDERED: LIDOCAINE 1% MPF 5 ML VIAL ONE (10:19)
[2017-06-17] MEDS ORDERED: BUPIVACA 0.5%/EPI 0.0005%/PF 30 ML VIAL ONE (10:20)
[2017-06-17] MEDS ORDERED: NA CHLORIDE 0.9% 1,000 ML ONE (10:56)
[2017-06-17] MEDS ORDERED: KETOROLAC 30 MG/ML INJ ONE (11:15)
[2017-06-17] MEDS ORDERED: NEOSTIGMINE 1 MG/ML -5 ML SYRINGE ONE (11:15)
[2017-06-17] MEDS ORDERED: GLYCOPYRROLATE 0.2 MG/ML SYR ONE ×2 (11:15→11:16)
[2017-06-17] MEDS ORDERED: ONDANSETRON 4 MG/2 ML VIAL ONE (11:15)
[2017-06-17] MEDS ORDERED: Mastisol Adhesive Liq ONE (11:23)
[2017-06-17] MEDS ORDERED: HYDROCODONE/APAP 7.5/325 MG TAB PO PRN (11:31)
--- NOTE | 2017-06-17 11:33 | P.BOP ---
Preoperative diagnosis: acute cholecystitis, symptomatic cholelithiasis, choledocholithiasis, liver Postoperative diagnosis: same, Primary procedure: Laparoscopic cholecystectomy Metal Sash Setter: Neda Beltran) Estimated blood loss: <10cc Specimen: gb Findings: as above Anesthesia: General Transferred to: Recovery Room Condition: Good
[2017-06-17] MEDS ORDERED: SUCCINYLCHOLINE 20 MG/ML (10 ML) IV ONE (11:44)
--- NOTE | 2017-06-17 16:54 | P.PN ---
Subjective Date of Service: 06/17/17 Chief Complaint: symptomatic cholelithiasis Subjective: No new changes, No C/O voiced, Tolerating diet, Ambulating, Improving Patient examined with RN. States that her pain is much better. Case discussed with general surgery and GI. Appreciated recommendations at this time. Awaiting Surgical Procedure today. Doing well overall. Review of Systems General: As per HPI Physical Examination - Vital Signs Temperature: 96.4 F Blood Pressure: 181/82 Pulse: 58 Respirations: 18 Pulse Ox (%): 99 - Physical Exam General: Alert, In no apparent distress HEENT: Atraumatic, PERRLA, EOMI Neck: Supple, JVD not distended Respiratory: Clear to auscultation bilaterally, Normal air movement Cardiovascular: Regular rate/rhythm, Normal S1 S2 Gastrointestinal: Normal bowel sounds, No tenderness Musculoskeletal: No tenderness Integumentary: No rashes Neurological: Normal speech, Normal tone, Normal affect Lymphatics: No axilla or inguinal lymphadenopathy - Studies Medications List Reviewed: Yes Assessment & Plan - Problems (Diagnosis) (1) Choledocholithiasis Current Visit: Yes Status: Acute Plan: Elevated LFT's with concern for Choledocholithiasis. Improving today -MRCP with early cholecysitis -GI consulted. Reccs Appreciated -ERCP negative for Stone. -Gen Surgery Consulted. Awaiting Surgical Procedure today (2) Cholelithiasis Onset Date: 06/12/17 Current Visit: Yes Status: Acute Plan: General Surgery consulted. Qualifiers: Cholelithiasis location: gallbladder Cholecystitis presence: without cholecystitis Biliary obstruction: without biliary obstruction Qualified Code(s): K80.20 - Calculus of gallbladder without cholecystitis without obstruction (3) HTN (hypertension) Onset Date: 06/12/17 Current Visit: Yes Status: Chronic Qualifiers: Hypertension type: essential hypertension Qualified Code(s): I10 - Essential (primary) hypertension Discharge Plan: Home Plan to discharge in: 24 Hours - Code Status/Comfort Care Code Status Assessed: Yes Critical Care: No
[2017-06-18 00:52] VITALS: O2SAT 100
[2017-06-18] MEDS: METRONIDAZOLE 500mg IVPB 500 MG/100 ML BAG IV SCH (01:30)
[2017-06-18] MEDS ORDERED: METRONIDAZOLE 500mg IVPB 500 MG/100 ML BAG IV SCH (02:00)
[2017-06-18] MEDS: NA CHLORIDE 0.9% 1,000 ML IV SCH (05:33)
[2017-06-18 06:20] LABS: Magnesium 1.8 mg/dL (1.8-2.5); Potassium 3.7 mEq/L (3.6-5.0)
[2017-06-18] MEDS ORDERED: POTASSIUM 25 MEQ EFFERV TAB PO ONE (07:00)
[2017-06-18] MEDS ORDERED: MAGNESIUM SULFATE 1 gm IVPB 1 GM/100 ML BAG IV ONE (07:00)
[2017-06-18 08:35] VITALS: BP 160/75; TEMP 97.9
[2017-06-18] MEDS: CIPROFLOXACIN 400mg IV 400 MG/200 ML BAG IV SCH (09:10)
[2017-06-18 10:01] LABS: Albumin 3.7 g/dL (3.2-5.5); Bilirubin Direct 0.3 mg/dL (0-0.2); Bilirubin Total 1.1 mg/dL (0.3-1.2); Protein, Total 7.9 g/dL (6.0-8.3)
--- NOTE | 2017-06-18 18:07 | P.DS ---
Admission Date: 06/12/17 Discharge Date: 06/18/17 Disposition: ROUTINE DISCHARGE Discharge Condition: GOOD Reason for Admission: symptomatic cholelithiasis Consultations: GI General Surgery Procedures: MRCP ERCP Lap Cholecystectomy - Problems (1) Choledocholithiasis Status: Acute (2) Cholelithiasis Onset Date: 06/12/17 Status: Acute Qualifiers: Cholelithiasis location: gallbladder Cholecystitis presence: without cholecystitis Biliary obstruction: without biliary obstruction Qualified Code(s): K80.20 - Calculus of gallbladder without cholecystitis without obstruction (3) HTN (hypertension) Onset Date: 06/12/17 Status: Chronic Qualifiers: Hypertension type: essential hypertension Qualified Code(s): I10 - Essential (primary) hypertension Brief History of Present Illness: Ms Corey is a 51 years old woman with history of HTN, who start today with abdominal pain. Initially was in epigastric area, then was localized on RUQ, radiated to the back. Pain intensity was 7/10. She had 1 episode of vomiting, and subsequently her pain resolved. She denied fever or chills. She has had this pain before about [address] abd/pelvis no acute abnormalities, Abd US : remarkable for cholelithiasis with no ducts dilation, or cholecystitis. However, lab work remarkable for elevated WBC count 13K, bilirubin, ald phos and transaminases. Hospital Course: Overall during the hospital stay patient remained stable Initially patient was admitted to the hospital for abdominal pain nausea vomiting and was found to have choledocholithiasis along with acute cholecystitis. Patient had an abdominal ultrasound done in the ER along with abdominal CT which were consistent with choledocholithiasis. The patient also had elevated transaminitis along with elevation of lipase. GI was consulted at that time and patient had an MRCP done here in the hospital. MRCP was negative for any presence of choledocholithiasis however did mention about acute cholecystitis. Given the elevated transaminitis patient was referred for an ERCP. GI did do an ERCP and patient had no stones noted. At that time. General surgery was consulted who took the patient for lap cholecystectomy here in the hospital. Patient tolerated the procedure well and overall did well postprocedure as well. Patient was able to take p.o. intake along with passing bowel movements. Patient was also ambulating while here in the hospital and thus was discharged home under stable condition. Patient was given prescription for antibiotics and pain management to go home with as well. Patient was asked to follow up with general surgery in about 1 week post DS Vital Signs/Physical Exam: Temp Pulse Resp BP Pulse Ox 97.9 F 82 16 160/75 H 97 06/18/17 08:00 06/18/17 08:00 06/18/17 08:00 06/18/17 08:00 06/18/17 08:00 General: Alert, In no apparent distress HEENT: Atraumatic, PERRLA, EOMI Neck: Supple, JVD not distended Respiratory: Clear to auscultation bilaterally, Normal air movement Cardiovascular: Regular rate/rhythm, Normal S1 S2 Gastrointestinal: Normal bowel sounds, No tenderness Musculoskeletal: No tenderness Integumentary: No rashes Neurological: Normal speech, Normal tone, Normal affect Lymphatics: No axilla or inguinal lymphadenopathy Laboratory Data at Discharge: WBC 9.1 K/uL (4.3-10.9) 06/16/17 04:18 Hgb 12.3 g/dL (12.0-15.0) 06/16/17 04:18 Hct 35.6 % (36.0-45.0) L 06/16/17 04:18 Plt Count 328 K/uL (152-406) 06/16/17 04:18 Sodium 139 mEq/L (135-145) 06/18/17 05:00 Potassium 3.7 mEq/L (3.6-5.0) 06/18/17 05:00 BUN 6 mg/dL (6-20) 06/18/17 05:00 Creatinine 0.82 mg/dL (0.44-1.00) 06/18/17 05:00 Glucose 95 mg/dL (65-120) 06/18/17 05:00 Magnesium 1.8 mg/dL (1.8-2.5) 06/18/17 05:00 Total Bilirubin 1.1 mg/dL (0.3-1.2) 06/18/17 09:00 AST 61 IU/L (10-42) H 06/18/17 09:00 ALT 57 IU/L (10-60) 06/18/17 09:00 Alkaline Phosphatase 97 IU/L (42-121) 06/18/17 09:00 Amylase 22 U/L (28-100) L 06/16/17 04:18 Lipase 11 U/L (22-51) L 06/16/17 04:18 Home Medications: Ciprofloxacin HCl [Cipro 500 MG Tablet] 500 mg PO BID #10 tab 06/17/17 Codeine/APAP [Tylenol W/Codeine #3 tab] 1 tab PO Q4HP PRN #40 tab 06/17/17 New Medications: Ciprofloxacin HCl [Cipro 500 MG Tablet] 500 mg PO BID #10 tab Codeine/APAP [Tylenol W/Codeine #3 tab] 1 tab PO Q4HP PRN #40 tab PRN Reason: Pain Patient Discharge Instructions: keep area dry for 48h then may shower. Keep sterile strips intact. Diet: Regular Activity: Ad estrellita Followup: Martell Collins MD [ACTIVE - CAN ADMIT] - 1 Week Faye Newton MD [ACTIVE - CAN ADMIT] - 1 Week
--- NOTE | 2017-06-24 19:03 | P.PN ---
Subjective Date of Service: 06/15/17 Chief Complaint: symptomatic cholelithiasis, elevated lever enzymes Subjective: No new changes Review of Systems ENT: Unremarkable Respiratory: Unremarkable Cardiovascular: Unremarkable Gastrointestinal: Abdominal Pain, Distention, As per HPI Physical Examination - Vital Signs Temperature: 97.9 F Blood Pressure: 160/75 Pulse: 82 Respirations: 16 Pulse Ox (%): 97 - Physical Exam General: Alert, Oriented x3 HEENT: PERRLA, EOMI Neck: Supple Gastrointestinal: Tenderness (better but still present) - Studies Medications List Reviewed: Yes Assessment And Plan - Plan Pt explained the surgical options vs electibe surgery. Ig by tomorrow she feel better then she will do the sx electively as outpt but if by tomorrow she feel worst then she may give consent for sx BAR of lap amparo fully explained again.
--- NOTE | 2017-08-05 14:47 | OP ---
Date of Procedure: 06/17/2017 Surgeon: Martell Collins MD Ramp Service Agent: ITZ Ballesteros. Preoperative Diagnoses: Acute cholecystitis, symptomatic cholelithiasis choledocholithiasis. Postoperative Diagnoses: Acute cholecystitis, symptomatic cholelithiasis choledocholithiasis. Procedure: Laparoscopic cholecystectomy. Estimated Blood Loss: Less than 10 cc. Specimen: Gallbladder. Anesthesia: General plus local. Indications: This is a case of a 51-year-old patient with above diagnosis. I fully explained the be nefits, alternatives, and risks of laparoscopic, possible open cholecystectomy which include, but are not limited to infection, bleeding, damage to adjacent structures, anesthesia complication, choledoc holithiasis, bile leak, pancreatitis, [place], and even . She also understands this may not relieve any symptoms, she might need more than one surgical intervention. She understood and signed a consen t. The patient had an ERCP done previously. Description Of Procedure: The patient was brought to the operating room and placed in a position. A nesthesia was done without complication. Abdominal area was prepped and draped in a sterile fashion. Marcaine 0.5% injected for local anesthetic, followed by sharp incision of skin in the periumbilica l region. Incision was carried down to fascia, which was opened under direct vision. Peritoneum was encountered, opened under direct vision. Vicryl #1 was placed inside of the fascia. Arash trocar was carefully introduced. No bleeding was obtained. After that, I placed 3 more trocars, 5 mm each one of them, 1 in the epigastric area, 2 in the right upper quadrant using same technique, which cons isted of local anesthetic, sharp incision of the skin, and introduction of the trocars under direct v ision. This allowed me to put a grasper in the fundus of the gallbladder, another grasper in the inf undibulum, retracted the gallbladder in the inferolateral fashion exposing the triangle of Calot and obtaining critical view of safety. Cystic duct and cystic artery were clearly isolated free circumfe rentially and a connection between those and the gallbladder was clearly identified. I proceeded to ligate those by using 2 clips proximal, 1 clip distal, ligation in middle. Same was done with the cy stic artery. No bile leak. No bleeding. The gallbladder was removed from the liver using Bovie cau terizer and removed from abdominal cavity using an EndoCatch through the umbilical incision. The are a was inspected once again. Clips were intact. Gallbladder fossa with no bleeding. No bile leak. At that moment, we proceeded to remove the trocars under direct vision. Deflated pneumoperitoneum. Closed the fascia with #1 Vicryl. Irrigated subcutaneous tissue, closed that with 3-0 chromic, and s kin was approximated. Sponge count and instrument counts were correct. The patient tolerated the pr ocedure well. The patient was sent to recovery in stable condition. ANTONIO/ERIN Voice ID: [id number] Report ID: [id number]
== END 2017-06-18 12:07 | disposition home or self-care (01) | DRG 419 ==
LOC: ER 13:19 → ERHOLD 19:33 → 2ND 21:54 → OBSVTOIN 06-12 11:29
PROVIDERS: ADMIT Internal Medicine; ATTEND Family Medicine
PROC: 0FJB8ZZ Inspection of Hepatobiliary Duct, Via Natural or Artificial Opening Endoscopic (ICD-10-PCS; 2017-06-15)
PROC: 0FT44ZZ Resection of Gallbladder, Percutaneous Endoscopic Approach (ICD-10-PCS; principal; 2017-06-17 14:45)
DX: K80.00 Calculus of gallbladder with acute cholecystitis without obstruction (principal); I10 Essential (primary) hypertension; K21.9 Gastro-esophageal reflux disease without esophagitis
CPT/HCPCS: 36415; 74177; 74181; 76705; 80048; 80053; 80076; 81003; 82150; 82248; 83690; 83735; 85025; 88305; 96365; 96366; 99285; G0378; J0330; J0360; J0696; J0744; J1580; J2250; J2405; J2710; J3010; J3475; J7030; Q9967